=== PATIENT | female | born 1980 | race Caucasian/White ===

== ENCOUNTER 2025-05-14 21:37 | Day surgery (SDC) | payer OTHER, SELFPAY ==
[2025-05-14] VITALS (7 sets, daily range): BP systolic 100–118; BP diastolic 65–74; BMI 30.8
--- NOTE | 2025-05-14 18:07 | ED.GENMED ---
History of Present Illness
General
Chief Complaint: Abdominal Pain
Source: patient
Exam Limitations: none
Time Seen by Provider: 05/14/25 18:02
History of Present Illness
History of Present Illness:
Note:
CHIEF COMPLAINT(S)
Abdominal pain.
HISTORY OF PRESENT ILLNESS
A 44-year-old female with a past medical history of acute myeloid leukemia in remission (2008) presents with abdominal pain that began abruptly at 9:00 AM today. The pain initially presented in the lower abdomen and radiated to the side and back,
persisting without relief. The patient experienced diarrhea three times consecutively following the onset of pain and noted that it was severe and persistent, prompting her to take an unspecified pill, after which the diarrhea stopped. She denies
any fever and states she has not been in contact with anyone sick. She has no previous history of similar symptoms and denies respiratory symptoms directly related to the abdominal discomfort. The patient admits to a chronic cough, which she
attributes to her smoking habit. The patient also reports that walking or lying on her back exacerbates the pain, while lying on her left side provides some relief. There have been no recent dietary changes except for consuming a salad the previous
night. She has no past history of intra abdominal surgeries.
ALLERGIES
Patient states that she gets hives when she takes morphine
PAST MEDICAL HISTORY
Leukemia. She monitors her condition with blood work every six months or more frequently if feeling unwell.
SOCIAL HISTORY
The patient is a smoker and indicates the presence of a chronic cough related to this habit.
REVIEW OF SYSTEMS
See HPI
PHYSICAL EXAM
General: Patient is well appearing and in no acute distress; non-toxic
Skin: Warm and dry, no rashes or lesions
Head: Normocephalic, atraumatic
Eyes: Sclera non-icteric. EOMs intact.
Cardiac: Regular rate and rhythm, no murmurs
Peripheral Vascular: No lower extremity swelling or edema
Pulm: Normal respiratory effort, no wheezes, rales, or rhonchi
Abdomen: Diffuse non-focal abdominal tenderness to palpation with guarding
Neuro: CN II-XII intact, no focal neurologic deficits.
Psychiatric: Appropriate mood and affect.
PLAN
- CBC CMP Lipase
- IV fluids, Toradol, Zofran
- CT scan of the abdomen pelvis with IV contrast
- Urinalysis
DIFFERENTIAL DIAGNOSIS
The Differential Diagnosis includes, in no particular order and is not limited to:
1. Acute Gastroenteritis
2. Appendicitis
3. Gallbladder disease
4. Urinary Tract Infection
5. Bowel Obstruction
6. Diverticulitis
7. Peptic Ulcer Disease
8. Gastroesophageal Reflux Disease
9. Pancreatitis
10. Mesenteric Ischemia
REVIEW OF PRIOR RECORDS
No previous ER physician documentation to review
MDM/DISPOSITION
44-year-old female with a past medical history of AML in remission currently on no medications presents emergency department today with concerns of bilateral lower abdominal pain. Wraps around to her back. Is associated with nausea, vomiting, and
diarrhea. She underwent a CAT scan of the abdomen pelvis with IV contrast which revealed acute appendicitis but no evidence of perforation. She does have a leukocytosis however she is afebrile. I did review case with general surgeon Dr. Mccord
via the phone, considering patient's pain is well-controlled, there is no evidence of perforation on CAT scan, and she is afebrile, will plan for surgery tomorrow rather than this evening. Patient will be started on Zosyn. Patient referred for
admission under general surgery service.
Review of Systems
Review of Systems
All Other Systems: ROS reviewed and negative except as documented in HPI and ROS
Phy Exam
Physical Exam
Physical Exam:
see hpi
Course
Orders/Labs/Results
Orders:
Orders
05/14/25 18:24
0.9% Sodium Chloride 250 ml [Nss] 250 ml IV BOLUS
Ketorolac [Toradol] 15 mg IV NOW STA
Ondansetron Injectable [Zofran] 4 mg IV NOW STA
05/14/25 18:25
CT Abd/pelvis W Iv Cont Urgent
Comment:
Reason For Exam: diffuse lower abdominal pain
05/14/25 18:47
Complete Blood Count/With Diff Urgent
Comprehensive Metabolic Panel Urgent
Lipase Urgent
05/14/25 20:03
Piperacillin/Tazo 4.5 Gram [Zosyn] 4.5 gram in 100 ml IV NOW
05/14/25 20:45
Acetaminophen 1000MG/100Ml [Ofirmev] 1,000 mg in 100 ml IV ONCE
Acetaminophen IV Indication:: No MN & No Enteral Access
05/14/25 21:12
Admit/Transfer Patient As Directed
Co-Sign Provider:
Level of Care: Observation services
Assign to:: Medical/Surgical
Physician / Group: Dr. Weiss /Surgery
Diagnosis: acute appendicitis
PRN Pain Medication Management As Directed
May give lesser potent ordered pain med per pt: Yes
preference::
Protocol:: Medication orders for pain may be administered in a
manner that supports deferring to patient preference
when the pt is:
- Requesting an ordered lesser potent pain medication.
Least to most potent pain medications are defined
as: acetaminophen < NSAID < tramadol < opioids
(morphine, oxycodone, hydromorphone).
- Requesting a lesser dose of the same medication IF
ORDERED.
- Requesting a less intrusive route of administration
if both routes are prescribed by the provider (PO <
IV).
05/14/25 21:16
Code Status As Directed
Resuscitation Status: Full Code
05/14/25 22:00
Flush (0.9% Sodium Chloride) [Flush (Nss)] See Dose Instructions IV PER PROTOCOL
05/14/25 23:07
0.9% Sodium Chloride 1000 ml [Nss] 1,000 ml IV 80 mls/hr
Acetaminophen [Tylenol] 650 mg PO Q4HPRN PRN
Bisacodyl [Dulcolax] 10 mg RECTAL [id number] PRN
Docusate W/Senna [Senokot-S] 1 tablet PO BIDPRN PRN
Ondansetron Injectable [Zofran] 4 mg IV Q6HPRN PRN
Polyethylene Glycol Powder [Miralax] 17 grams PO DAILYPRN PRN
05/14/25 23:07
EKG [Electrocardiogram (*1)] Routine
Reason for Study: QTc Monitoring
Activity As Directed
Activity Level: Out of Bed-Early Mobility
Pneumatic Compression Sleeves As Directed
Type: Knee high
Vital Signs As Directed
Frequency: Per unit guidelines
DX Deep Vein Thrombosis Video Routine
05/15/25 00:00
Ketorolac [Toradol] 10 mg IV Q6HPRN PRN
05/15/25 05:00
Piperacillin/Tazo 3.375 Gram [Zosyn] 3.375 gram in 50 ml IV Q6
05/15/25 Breakfast
NPO
Allow oral meds: Yes
Allow clear liquids: No
Abnormal Lab Results
05/14/25
18:47
WBC 19.2 H 10^3/uL
(4.8-10.8)
RBC 4.10 L 10^6/uL
(4.20-5.40)
MCH 32.9 H pg
(27.0-31.0)
MPV 11.0 H fL
(7.4-10.4)
Abs Immat Gran (auto) 0.1 H 10^3/uL
(0-0.05)
Absolute Neuts (auto) 16.1 H 10^3/uL
(1.4-6.5)
Absolute Monos (auto) 0.9 H 10^3/uL
(0.1-0.6)
Neutrophils % 84.1 H %
(42.2-75.2)
Lymphocytes % 10.2 L %
(20.5-51.1)
Chloride 108 H mmol/L
(98-107)
BUN 4 L mg/dl
(7-17)
Glucose 109 H mg/dl
(70-99)
05/14/25 18:47
05/14/25 18:47
Vital Signs
Initial and Last Documented VS:
Initial Vital Signs
Temp Pulse Resp BP Pulse Ox
98.4 F 68 16 116/74 98
05/14/25 17:34 05/14/25 17:34 05/14/25 17:34 05/14/25 17:34 05/14/25 17:34
Last Documented Vital Signs
Temp Pulse Resp BP Pulse Ox
98.8 F 75 17 110/66 100
05/14/25 23:30 05/14/25 23:30 05/14/25 23:30 05/14/25 23:30 05/14/25 23:30
*Pulse Oximetry
SaO2: 98
Oxygen Mode of Delivery: Room air
Patient hypoxic: no
*Critical Care Note
Total Time (30-74mins, 75-104mins- exclusive of procedures): Not Applicable
ED Attending Note
-
Portions of this chart may have been created with voice recognition software.� Occasional wrong word or��sound alike� substitutions may have occurred due to the inherent limitations of voice recognition software.
Discharge Plan
Departure
Patient Disposition: Admit
Date of Disposition: 05/14/25
Time of Disposition: 20:04
Admit to: Med/Surg
Presentation/result/management discussed w/ accepting /DO: Dr. Velázquez
Patient with high blood pressure during this ER visit?: No
Condition: Good
Discharge Problem:
Acute appendicitis
Interventions
Interventions:
*Risk Screen - Suicide Last Done: 05/14/25 23:54
*General Assessment Last Done: 05/14/25 18:53
*Neglect/Abuse Screening Last Done: 05/14/25 17:34
*ED- Fall Risk Assessment Last Done: 05/14/25 18:53
*ED COVID-19 Vaccine History Last Done: 05/14/25 18:53
*Nursing Disposition Last Done: 05/14/25 22:53
N[place]-[id number]-[id number] Assessment Last Done: 05/14/25 18:53
Discharge Date and Time
Discharge Date/Time: 05/14/25 23:05
[2025-05-14] MEDS: NSS 250 IV (18:48)
[2025-05-14] MEDS: ZOFRAN 4 MG IV (18:48)
[2025-05-14] MEDS: TORADOL 15 MG IV (18:48)
[2025-05-14 18:59] LABS: % Basophils 0.2 % (0-2); % Eosinophils 0.2 % (0-6); % Immature Granulocytes 0.4 % (0-0.5); % Lymphocytes 10.2 % (20.5-51.1); % Monocytes 4.9 % (1.7-9.3); % Neutrophils 84.1 % (42.2-75.2); Absolute Immature Granulocytes 0.1 10^3/uL (0-0.05); Absolute Monocytes 0.9 10^3/uL (0.1-0.6); Absolute Neutrophils 16.1 10^3/uL (1.4-6.5); Hematocrit 38.7 % (37.0-47.0); Hemoglobin 13.5 g/dL (12.0-16.0); Mean Corp Hgb Conc. 34.9 g/dL (33.0-37.0); Mean Corpuscular Hgb 32.9 pg (27.0-31.0); Mean Corpuscular Volume 94.4 fL (81.0-99.0); Nucleated Red Blood Cells % 0 %; Platelet Count 280 10^3/uL (130-400); Red Cell Dist. Width 13.2 % (11.5-14.5); White Blood Cell Count 19.2 10^3/uL (4.8-10.8)
[2025-05-14 19:16] LABS: ALT (SGPT) 15 U/L (0-35); AST (SGOT) 15 U/L (14-36); Albumin 4.3 g/dl (3.5-5.0); Alkaline Phosphatase 77 U/L (38-126); Blood Urea Nitrogen 4 mg/dl (7-17); Carbon Dioxide 24 mmol/L (22-30); Chloride 108 mmol/L (98-107); Estimated Creatinine Clearance 94 ml/min; Glucose 109 mg/dl (70-99); Lipase 93 U/L (23-300); Potassium 3.7 mmol/L (3.5-5.1); Sodium 137 mmol/L (135-145); Total Bilirubin 0.6 mg/dl (0.2-1.3); Total Protein 6.4 g/dl (6.3-8.2); eGFR > 60.00
[2025-05-14] MEDS: ZOSYN 100 IV (20:44)
[2025-05-14] MEDS: OFIRMEV 100 IV (20:51)
--- NOTE | 2025-05-14 20:57 | HPS.HSE ---
Addendum entered and electronically signed by Jj Weiss MD 05/15/25 09:31:
I saw and examined the patient independently.
The Global Upstream Marketing Manager's note was reviewed and I agree with the note, assessment and plan except where noted below.
Comment: This is a 44-year-old female with a history of AML, in remission who presents with a 1-day history of lower abdominal pain found to have acute appendicitis on CT imaging.
Will plan for laparoscopic appendectomy today.
N.p.o., IV fluids, IV antibiotics ordered.
Risks/Benefits/Alternatives, expected postoperative course and possible complications (bleeding, infection, injury to surrounding structures, acute/chronic pain) discussed at length. Patient wishes to proceed with surgery. All questions answered.
Consent obtained.
I spent 45 minutes in total for the care of this patient today including direct patient care and counseling, reviewing labs, imaging, coordination of care, as well as documentation.
Original Note:
Family Physician
-
Family Physician: NOT KNOW UNKNOWN - PT DOES
Chief Complaint
-
Abdominal pain
History of Present Illness
A 44 years old female with PMH acute myeloid leukemia in remission (2008), present to ER with a complain of abdominal pain that started this am in the lower abdomen radiating to the side and back. Patient was not able to get in comfortable position
she took Tylenol with no relief. Symptoms associate with nausea and vomitingx1. Reported diarrhea x3 and she took Imodium at home. Denies SOB, chest pain, chills, fever, urinary symptoms or any other symptoms. Reported chronic cough which is related
to smoking. Patient is not receiving prescribed meds at home.
Medical History
Past Medical History
Past Medical History: Reports Other (acute myeloid leukemia in remission (2008) )
Past Surgical History: Reports None
Social History
Tobacco: Smoker
Alcohol: Occasional
Drug: None
Personal: Other
Living: With Family
Employment: Employed
Family History
Family History: Not pertinent
Allergies / Home Medications
Allergies reflects when Allergies were last updated in [facility].
Home Medications with original date entered in [facility]
Allergy/Medication List:
Patient Allergies
Allergy/AdvReac Type Severity Reaction Status Date / Time
morphine Allergy Mild Hives Verified 05/14/25 17:33
vancomycin Allergy Mild Rash Verified 05/14/25 17:33
Review of Systems
-
History Source: Patient
A 12 point ROS was completed and negative except as noted: Yes
Constitutional: Reports No Symptoms
Respiratory: Reports Cough (chronic cough )
Abdomen/GI: Reports Abdominal Pain, Nausea, Vomiting and Diarrhea
: Reports No Symptoms
Musculoskeletal: Reports No Symptoms
Psych: Reports No Symptoms
Physical Exam
Vital Signs
Vital Signs
Temp Pulse Resp BP Pulse Ox
98.4 F 58 16 113/65 98
05/14/25 17:34 05/14/25 18:41 05/14/25 17:34 05/14/25 20:00 05/14/25 20:15
Physical Exam
General: No Apparent Distress
Respiratory: Clear
Cardiac: Regular Rhythm
GI: Soft, Non Tender, Non Distended and Normal Bowel Sounds
Musculoskeletal: No Edema
Neuro: Awake and AO x 3
Laboratory Results
-
05/14/25 18:47
05/14/25 18:47
Laboratory Results
Total Bilirubin 0.6 mg/dl (0.2-1.3) 05/14/25 18:47
AST 15 U/L (14-36) 05/14/25 18:47
ALT 15 U/L (0-35) 05/14/25 18:47
Alkaline Phosphatase 77 U/L (38-126) 05/14/25 18:47
Lipase 93 U/L (23-300) 05/14/25 18:47
Data Reviewed
-
CT Scan: Discussed with Patient
Lab Data: Discussed with Patient
Impression/Plan
-
Abd/PLVS CT shows
1. MILD ACUTE APPENDICITIS with multiple calcified appendicoliths in the appendiceal lumen.
2. Small amount of peritoneal fluid in the pelvic cul-de-sac.
WBC 19.2
IMPRESSION:
Acute appendicitis
PLAN:
Admit/observation/med-surg (Dr. Weiss/ Surgical services)
NPO
IVF
Abx Zosyn
analgesics as needed
antiemetics as needed
DVT Prophylaxis SCDs
Code status Full code
[2025-05-14] MEDS: NSS 1000 IV (23:24)
[2025-05-15] VITALS (9 sets, daily range): BP systolic 91–102; BP diastolic 51–62; BMI 30.9
[2025-05-15] MEDS: TORADOL 10 MG IV (02:38)
[2025-05-15] MEDS: ZOSYN 50 IV (05:24)
[2025-05-15] MEDS: TYLENOL 650 MG PO (05:24)
--- NOTE | 2025-05-15 09:31 | W.SUR.PREOP ---
Pre-Operative Surgical Note
-
I have examined this patient prior to the performance of the scheduled procedure.
The patient's condition is unchanged from the time of the current History and
Physical and the patient is able to undergo the scheduled procedure.
--- NOTE | 2025-05-15 11:32 | W.IMMPOSTOP ---
Surgical Immed Post Op Note
-
Primary Surgeon: Jj Weiss MD
Assisting Surgeon: None
Pre-op Diagnosis: Acute appendicitis
Post-op Diagnosis: Same
Procedure Performed: Laparoscopic appendectomy
Anesthesia Type: General
Specimen / Cultures: Appendix
Estimated Blood Loss: 3 cc
Complications: None
Operative Findings: Veress, three 5 mm port appendectomy. Inflamed, locally perforated appendicitis with murky fluid in the pelvis suctioned up. Base taken with an Endoloop x 2.
POST OP PLAN:
Will DC home today with a 4-day course of antibiotics.
--- NOTE | 2025-05-15 11:34 | OR.RPT ---
Operative Report
Operative Report
Patient Name: Sherice Juan
: 1980
Date of Operation: 05/15/2025
Preoperative Diagnosis: Acute Appendicitis
Postoperative Diagnosis: Same
Procedure(s):
Laparoscopic Appendectomy
Surgeon(s):
Dr. Weiss
Mac Operator(s):
LUIS F Qureshi
Anesthesia: General
Estimated Blood Loss: 3 cc
Urine Output: None
Drains/Lines/Implants: None
Specimens:
1. Appendix
HPI/Surgical Indications:
This is a 44-year-old female who presents with a 1 day history of abdominal pain. Exam, labs and imaging are consistent with acute appendicitis. Risks/Benefits/Alternatives were discussed at length, and the patient agreed to proceed with surgery.
Operative Findings: Veress, three 5 mm port appendectomy. Inflamed, locally perforated appendicitis with murky fluid in the pelvis suctioned up. Base taken with an Endoloop x 2.
Procedure Description:
The patient was placed in the supine position, with the left arm tucked, and general anesthesia was induced. The abdomen was prepared and draped in a sterile fashion so as to expose the entire abdomen. A surgical time out was taken. Abdominal access
was obtained with a Veress left upper quadrant entry which required a single pass followed by a 5 mm left lower quadrant Optiview entry. After confirming no injury on entrance, two additional 5mm ports were placed in the suprapubic area just off
midline and just below the umbilicus. The patient was placed in Trendelenberg with the right slightly up . The appendix was identified and a window was created in the mesoappendix. The appendix was suppurative and inflamed with evidence of local
perforation and murky fluid that was extending down into the pelvis which was suctioned up. Using a laparoscopic bipolar energy device, the meso appendix was divided. The base of the appendix appeared uninvolved and was ligated/divided using two
0-PDS Endoloops and the energy device. The appendix was placed in a specimen retrieval bag. Hemostasis was confirmed and the ports were removed under visualization. The specimen was passed off the field. The umbilical port was closed with a
[id number] 0-PDS and the skin for all three ports was closed with interrupted monocryls and covered with dermabond. The patient was awoken from anesthesia in good condition and transported to the recovery area.
I was the attending physician and performed the procedure with assistance from the UNDER GROUND MINER above. I was present for all portions of the case except skin closure.
Jj Weiss MD
[2025-05-15] MEDS: ZOSYN IV (12:38)
--- NOTE | 2025-05-15 12:55 | PTCARENOTE ---
pt returned from PACU to room @1235. pt awake but drowsy. at bedside. pt oriented to post op plan of care. tolerating water. denies nausea or abdominal pain. 3 lap sites and 1 puncture site ROSANGELA w/surgical glue. IVF infusing. care
ongoing
--- NOTE | 2025-05-15 13:01 | CM ---
Patient in OR. Initial assessment completed with . Patient lives with her and 2 children (11 and 17 y/o) in a 1 story home with no basement and no steps to enter. 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
FT. No DME or in-home services. Support system is family and extended family. No HC-POA. Patient does not have a PCP. Pharmacy is [facility] in [place]. Discharge POC: Home with no needs.
--- NOTE | 2025-05-15 15:22 | PTCARENOTE ---
pt Out of bed -ambulatory to bathroom. voiding qs. tolerated regular lunch. eager for discharge home with .
--- NOTE | 2025-05-15 16:09 | CM ---
Patient has been medically cleared for discharge to home with no additional skilled services. transported home.
== END 2025-05-15 15:41 | disposition home or self-care (01) ==
LOC: SDS 21:37
PROVIDERS: Physician Assistant; ATTENDING PHYSICIAN Surgery; EMERGENCY PHYSICIAN Student in an Organized Health Care Education/Training Program
DX: K35.80 Unspecified acute appendicitis (principal)
CPT/HCPCS: 44970; 88304; 74177; 80053; 83690; 85025; 93005; 96361; 96374; 96375; 99285; 99406; C1776; G0378; Q9967

== ENCOUNTER 2025-05-21 12:49 | Day surgery (SDC) | payer OTHER, SELFPAY ==
[2025-05-21] VITALS (11 sets, daily range): BP systolic 16–118; BP diastolic 51–70; BMI 27.5; BMI 26.0
[2025-05-21 01:38] LABS: % Basophils 0.4 % (0-2); % Eosinophils 0.8 % (0-6); % Immature Granulocytes 0.4 % (0-0.5); % Lymphocytes 14.2 % (20.5-51.1); % Monocytes 7.6 % (1.7-9.3); % Neutrophils 76.6 % (42.2-75.2); Absolute Basophils 0.1 10^3/uL (0-0.2); Absolute Eosinophils 0.2 10^3/uL (0-0.7); Absolute Immature Granulocytes 0.1 10^3/uL (0-0.05); Absolute Lymphocytes 2.8 10^3/uL (1.2-3.4); Absolute Monocytes 1.5 10^3/uL (0.1-0.6); Absolute Neutrophils 15.3 10^3/uL (1.4-6.5); Hematocrit 39.7 % (37.0-47.0); Hemoglobin 13.7 g/dL (12.0-16.0); Mean Corp Hgb Conc. 34.5 g/dL (33.0-37.0); Mean Corpuscular Hgb 32.3 pg (27.0-31.0); Mean Corpuscular Volume 93.6 fL (81.0-99.0); Mean Platelet Volume 10.8 fL (7.4-10.4); Nucleated Red Blood Cells % 0 %; Platelet Count 310 10^3/uL (130-400); Red Blood Cell Count 4.24 10^6/uL (4.20-5.40); Red Cell Dist. Width 13.6 % (11.5-14.5)
[2025-05-21 01:39] LABS: ALT (SGPT) 14 U/L (0-35); AST (SGOT) 15 U/L (14-36); Albumin 4.3 g/dl (3.5-5.0); Alkaline Phosphatase 69 U/L (38-126); Blood Urea Nitrogen 7 mg/dl (7-17); Calcium 9.2 mg/dl (8.4-10.2); Carbon Dioxide 22 mmol/L (22-30); Chloride 108 mmol/L (98-107); Glucose 110 mg/dl (70-99); Sodium 139 mmol/L (135-145); Total Bilirubin 0.4 mg/dl (0.2-1.3); Total Protein 6.7 g/dl (6.3-8.2); eGFR > 60.00
[2025-05-21 01:42] LABS: Lactic Acid 0.6 mmol/L (0.7-2.0)
[2025-05-21] MEDS: ANCEF 10 IV (06:19)
[2025-05-21] MEDS: NSS 1000 IV ×2 (06:19→14:43)
--- NOTE | 2025-05-21 08:18 | ED.GENMED ---
History of Present Illness
General
Chief Complaint: Fever
Source: patient
Exam Limitations: none
Time Seen by Provider: 05/21/25 05:58
History of Present Illness
History of Present Illness:
44-year-old female lap appendectomy May 15. Was doing well. No general abdominal pain but noted fever 2 days ago. Noted area of redness below her umbilicus in the last 48 hours. No urinary symptoms nausea vomiting back pain or other complaints
Past History
Past History
ED Past Surgical History: Appendectomy
Review of Systems
Review of Systems
All Other Systems: Not applicable
Constitutional: Reports fever and chills
Respiratory: Reports no symptoms
: Reports no symptoms
Phy Exam
Physical Exam
Physical Exam:
GENERAL: Alert and oriented in no apparent distress
EYE: Orbits normal.
NECK: Supple, no significant adenopathy.
ENT: Pharynx without erythema
CARDIAC: Regular rate and rhythm without any obvious murmurs.
LUNGS: Clear breath sounds,normal
ABDOMEN: Soft, no general tenderness. No rebound or guarding no mass or hernia. Small post laparoscopic surgical wounds all appear well. However below the umbilicus there is an area of erythema induration and tenderness. Approximately 10 x 10 cm.
NEUROLOGICAL: Alert and oriented , grossly non-focal
SKIN: Warm and dry, no rash or lesion, no discoloration, skin intact.
MUSCULOSKELETAL: No edema,no deformity.Good color
PSYCH: Normal and appropriate interaction.
Course
Orders/Labs/Results
Orders:
Orders
05/21/25 01:15
Complete Blood Count/With Diff Urgent
Comprehensive Metabolic Panel Urgent
Lactic Acid Urgent
Blood Culture Urgent
LESTER Source: Blood/Venous
Specimen Description:
05/21/25 Breakfast
NPO
Allow oral meds: Yes
Allow clear liquids: No
05/21/25 06:06
CT Abd/Pel (IV only)-DH only Urgent
Comment:
Reason For Exam: Fever recent appendicitis/abdominal wall celluliti
IV Insert/Care/Rem.- Treatment PRN
0.9% Sodium Chloride 1000 ml [Nss] 1,000 ml IV BOLUS
05/21/25 06:07
Urinalysis Reflex To Culture Urgent
CeFAZolin 2 GRAM [Ancef] 2 grams in 10 ml IV NOW
05/21/25 09:27
Piperacillin/Tazo 3.375 Gram [Zosyn] 3.375 gram in 50 ml IV ONCE
05/21/25 09:45
Fentanyl Citrate/Pf [Sublimaze] 25 mcg IV [id number] PRN
HYDROmorphone [Dilaudid] 0.25 mg IV PACU-Q5MPRN PRN
HYDROmorphone [Dilaudid] 0.5 mg IV PACU-Q5MPRN PRN
Normosol (Mult Electrolytes) [Normosol-R/Plasmalyte-A] 1,000 ml IV PER PROTOCOL
Ondansetron Injectable [Zofran] 4 mg IV PACU-ONCEPRN PRN
Prochlorperazine [Compazine] 5 mg IV PACU-ONCEPRN PRN
Notify MD As Directed
Notify physician if: for SDS patients with known or suspected sleep obstructive sleep apnea, monitor in the
PACU.
Notify MD for any apneic/desaturation episodes
O2 Therapy [RESP] Urgent
Titrate/Wean O2 to maintain O2 sat greater than (%): 92
Special Instructions: -Provide supplemental oxygen to achieve O2 sat of 92% or greater.
-After 15 min, may wean O2 and discontinue if patient is able to maintain O2 sat of 92%
or greater during recovery period.
If patient is a discharge home, without oxygen therapy, notify anestheiologist if
unable to maintain O2 SAT of 92% or greater on room air for MD clearance.
05/21/25 10:00
Nicotine [Nicoderm Transdermal] 21 mg TRANSDERM DAILY
05/21/25 22:00
Remove Patch [Remove Nicotine Patch] 1 patch REMOVE HS
Abnormal Lab Results
05/21/25
01:15
WBC 20.0 H 10^3/uL
(4.8-10.8)
MCH 32.3 H pg
(27.0-31.0)
MPV 10.8 H fL
(7.4-10.4)
Abs Immat Gran (auto) 0.1 H 10^3/uL
(0-0.05)
Absolute Neuts (auto) 15.3 H 10^3/uL
(1.4-6.5)
Absolute Monos (auto) 1.5 H 10^3/uL
(0.1-0.6)
Neutrophils % 76.6 H %
(42.2-75.2)
Lymphocytes % 14.2 L %
(20.5-51.1)
Chloride 108 H mmol/L
(98-107)
Glucose 110 H mg/dl
(70-99)
Lactic Acid 0.6 L mmol/L
(0.7-2.0)
05/21/25 01:15
05/21/25 01:15
Vital Signs
Initial and Last Documented VS:
Initial Vital Signs
Temp Pulse Resp BP Pulse Ox
99.0 F 95 16 118/70 97
05/21/25 00:55 05/21/25 00:55 05/21/25 00:55 05/21/25 00:55 05/21/25 00:55
Last Documented Vital Signs
Temp Pulse Resp BP Pulse Ox
99 F 78 18 116/65 99
05/21/25 03:56 05/21/25 03:56 05/21/25 03:56 05/21/25 03:56 05/21/25 08:21
MDM/Problems Addressed
Differential Diagnosis Includes:
Clinically very suspicious of the cellulitis/early abscess as a source of her fever and persistent white count. CT scan confirms this. Clinically and by radiologic and lab testing warrants inpatient IV antibiotics. Referred to surgery. Patient
reluctant to stay but it does appear she will likely stay
*Radiology
Radiology exam reviewed: radiology read reviewed (Local abdominal wall cellulitis possible abscess or seroma no intra-abdominal issue)
*Pulse Oximetry
SaO2: 99
Oxygen Mode of Delivery: Room air
Patient hypoxic: no (99%)
*Critical Care Note
Total Time (30-74mins, 75-104mins- exclusive of procedures): Not Applicable
Data Reviewed
Review of Other/Old Records Reveals: Labs, Records, Operative Reports and Testing
ED Attending Note
-
Portions of this chart may have been created with voice recognition software.� Occasional wrong word or��sound alike� substitutions may have occurred due to the inherent limitations of voice recognition software.
Discharge Plan
Departure
Patient Disposition: Admit
Date of Disposition: 05/21/25
Time of Disposition: 08:18
Presentation/result/management discussed w/ accepting MD/DO: surgery
Discharge Problem:
Abdominal wall abscess/cellulitis, Recent laparoscopic appendectomy
Prescriptions:
No Action
acetaminophen [acetaminophen] 325 mg tablet
650 mg PO Q6HPRN PRN (Reason: mild pain) Qty: 14 0RF
tramadol 50 mg tablet
25 mg PO Q6HPRN PRN (Reason: severe pain/breakthrough pain) Qty: 8 0RF
ibuprofen 600 mg tablet
600 mg PO Q6H PRN (Reason: pain) Qty: 14 0RF
amoxicillin-pot clavulanate [Augmentin] 500-125 mg tablet
1 tab PO Q12H Qty: 8 0RF
Referrals:
NONE,* [Family Provider, Internal Medicine]
Interventions
Interventions:
*Risk Screen - Suicide Last Done: 05/21/25 00:55
*General Assessment Last Done: 05/21/25 00:55
*Neglect/Abuse Screening Last Done: 05/21/25 09:29
*ED- Fall Risk Assessment Last Done: 05/21/25 09:29
*ED COVID-19 Vaccine History Last Done: 05/21/25 09:29
ED- Neurological Assessment Last Done: 05/21/25 04:01
ED-Skin Assessment Last Done: 05/21/25 04:01
Discharge Date and Time
Print Language: UKRAINIAN
--- NOTE | 2025-05-21 10:51 | HPS.HSE ---
Family Physician
-
Family Physician: * NONE
Chief Complaint
-
redness to incision
History of Present Illness
Ms Juan is a 44 yo female who recently presented with acute appendicitis with laparoscopic appendectomy preformed on 05/15/[address] Weiss. Local perforation was noted intraoperatively and she was continued on oral abx x4 days upon discharge
with Augmentin. She notes she took her last dosage of antibiotics on and by the following day noted increasing erythema and tenderness to the incision near her umbilicus with chills and a fever. She presented for evaluation through the ED.
On exam, there is noted erythema below the umbilicus with tenderness present and induration deep into the tissue without obvious fluctuance. She denies n/v, bowel or bladder changes.
Medical History
Past Medical History
Past Medical History: Reports Cancer (AML tx 2008)
Past Surgical History: Reports Appendectomy (05/15/2025)
Social History
Tobacco: Smoker
Alcohol: Occasional
Personal:
Living: With Family
Family History
Family History: Not pertinent
Allergies / Home Medications
Allergies reflects when Allergies were last updated in [facility].
Home Medications with original date entered in [facility]
Allergy/Medication List:
Patient Allergies
Allergy/AdvReac Type Severity Reaction Status Date / Time
morphine Allergy Mild Hives Verified 05/14/25 17:33
vancomycin Allergy Mild Rash Verified 05/14/25 17:33
�Medication �Instructions �Recorded �Confirmed �Type
acetaminophen 325 mg tablet 650 mg (2 x 325 mg) PO Q6HPRN PRN 05/15/25 Rx
mild pain #14 tabs
amoxicillin 500 mg-potassium 1 tab PO Q12H #8 tabs 05/15/25 Rx
clavulanate 125 mg tablet
(Augmentin)
ibuprofen 600 mg tablet 600 mg PO Q6H PRN pain #14 tabs 05/15/25 Rx
tramadol 50 mg tablet 25 mg (1/2 x 50 mg) PO Q6HPRN PRN 05/15/25 Rx
severe pain/breakthrough pain #8
tabs
Review of Systems
-
History Source: Patient and Family
A 12 point ROS was completed and negative except as noted: Yes
Physical Exam
Vital Signs
Vital Signs
Temp Pulse Resp BP Pulse Ox
99 F 78 18 116/65 99
05/21/25 03:56 05/21/25 03:56 05/21/25 03:56 05/21/25 03:56 05/21/25 08:21
Physical Exam
General: Well Developed and Well Nourished
HEENT: NormoCephalic and Moist mucous membranes
Respiratory: Non Labored Respirations
GI: Soft, Non Distended and Tender (at periumbilical incision)
Skin: Other (Incision below the umbilicus with surrounding erythema, deep area of induration, no obvious fluctuance, no drainage. Other incisions healing well. )
Neuro: Awake and Alert
Psych: Agitated (wants to smoke)
Laboratory Results
-
05/21/25 01:15
05/21/25 01:15
Laboratory Results
Lactic Acid 0.6 mmol/L (0.7-2.0) L 05/21/25 01:15
Total Bilirubin 0.4 mg/dl (0.2-1.3) 05/21/25 01:15
AST 15 U/L (14-36) 05/21/25 01:15
ALT 14 U/L (0-35) 05/21/25 01:15
Alkaline Phosphatase 69 U/L (38-126) 05/21/25 01:15
Data Reviewed
-
CT Scan: Image Personally Visualized and interpreted, Report Reviewed by me, Discussed with Physician, Discussed with Nurse, Discussed with Patient and Discussed with Family
Lab Data: Labs Reviewed by me, Discussed with Physician, Discussed with Nurse, Discussed with Patient and Discussed with Family
Old Records: Reviewed
Impression/Plan
-
IMPRESSION:
44 yo female who recently presented with acute appendicitis with laparoscopic appendectomy preformed on 05/15/[address] Weiss. Local perforation was noted intraoperatively and she was continued on oral abx x4 days upon discharge. She notes she
took her last dosage of antibiotics on and by the following day noted increasing erythema and tenderness to the incision near her umbilicus with chills and a fever. Induration noted on exam with concern for surgical site infection with
phlegmon/early abscess on CT imaging. Denies Gi symptoms. Leukocytosis present with WBC of 20. Afebrile with stable vital signs.
PLAN:
Ancef given in ED, will give Zosyn for broader gram neg coverage
NPO for OR today for I&D
Anticipate will stay overnight for IV abx
Recommended nicotine patch as patient very anxious about not being able to smoke, she is currently refusing
Analgesics prn
--- NOTE | 2025-05-21 13:38 | W.IMMPOSTOP ---
Addendum entered and electronically signed by Bruce Lindsay MD 05/21/25 13:58:
updated spouse via phone
Original Note:
Surgical Immed Post Op Note
-
Primary Surgeon: Bruce Lindsay MD
Assisting Surgeon: Ami Willis NP
Pre-op Diagnosis: Umbilical incision abscess
Post-op Diagnosis: Umbilical incision abscess
Procedure Performed: Incision and drainage of umbilical abscess
Anesthesia Type: Sedation with local
Specimen / Cultures: Aerobic and anaerobic culture
Estimated Blood Loss: 5 mL
Complications: None
Operative Findings: Identified abscess on ultrasound, confirming its presence; opened up umbilical incision and encountered 10 mL of purulent material; opened up umbilical incision to a 1.5 cm hole to promote drainage; abscess was copiously
irrigated and packed with Betadine�soaked 0.25 inch packing
--- NOTE | 2025-05-21 13:42 | OR.RPT ---
Operative Report
Operative Report
DATE OF OPERATION: 05/21/2025
SURGEON: Bruce Lindsay MD
PREOPERATIVE DIAGNOSIS: Umbilical incision abscess
POSTOPERATIVE DIAGNOSIS: Umbilical incision abscess
OPERATION: Incision and drainage of umbilical abscess with ultrasound-guidance
ASSISTANTS:
1. None
ANESTHESIA: Sedation with local
ESTIMATED BLOOD LOSS: 5 mL
FINDINGS:
1. Confirmed subcutaneous abscess on ultrasound imaging
2. Drained about 10 mL of purulent material, sent cultures
3. Packed abscess cavity with Betadine�soaked packing
SPECIMENS:
1. Umbilical abscess cultures
DRAINS: None
COMPLICATIONS: No immediate complications.
INDICATIONS: The patient is a 44-year-old female who underwent laparoscopic appendectomy on 05/15/2025. She did well postoperatively and was discharged on antibiotics. She completed her antibiotics 2 days ago, but started noticing redness and
tenderness near her umbilical incision, which continued to get worse. In the ED, her WBC was [address] scan showed phlegmonous changes around the umbilicus. There was significant induration. I was concerned for an abscess based on imaging and
exam. Based on the depth of the abscess, I felt the best drainage would be obtained in the operating room under sedation. The operation was discussed with the patient in detail, including the risks, benefits and alternatives. Risks described
included, but not limited to, bleeding, recurrent infection, incomplete drainage, damage to nearby structures and anesthetic risks. The patient understood and agreed to proceed.
PROCEDURE IN DETAIL: The patient was taken to the operating room and placed on the operating table in supine position with arms secured to the arm boards in extended position. Sequential compression devices were placed bilaterally. Sedation was
induced without complication. Preoperative antibiotics were given. The abdomen was prepped and draped in a sterile fashion. A time-out was performed verifying the correct patient, procedure, operative site, positioning, and special equipment.
Local anesthesia used was 30 mL of 0.25% Marcaine with epinephrine, 30 mL of 1% lidocaine plain and 0.6 mg of dexamethasone. I injected 30 mL of local around the umbilical incision. Using a curvilinear ultrasound probe, I investigated the
subcutaneous tissue to confirm an abscess cavity. I identified a narrow cavity just underneath the umbilical incision. I proceeded with incision and drainage. I used an 11 blade scalpel to open up the umbilical incision. I used a hemostat clamp
to probe. I immediately encountered 10 mL of purulent material, which I swabbed and sent for anaerobic and aerobic cultures. Using electrocautery, I extended the incision inferiorly to create a hole about 1.5 cm in diameter. I probed the abscess
cavity with a finger to break up any loculations. The fascia was gently felt and was intact. I copiously irrigated the abscess cavity. Hemostasis was confirmed. I packed the abscess cavity with 0.25 inch packing that was soaked in Betadine. I
injected the remainder of the local around the wound in the subcutaneous tissue.
At this point, the procedure was complete. The patient was awoken and extubated without complication. All needle, sponge and instrument counts were reported as correct. The patient tolerated the procedure well and was transferred to the recovery
room in stable condition.
DICTATED BY: Bruce Lindsay MD
[2025-05-21] MEDS: TORADOL 15 MG IV ×2 (14:49→20:47)
[2025-05-21] MEDS: TYLENOL 1000 MG PO (17:27)
[2025-05-21] MEDS: ZOSYN 50 IV ×2 (17:28→23:11)
[2025-05-21] MEDS: TYLENOL PO (23:10)
[2025-05-22] MEDS: TORADOL IV ×4 (02:54→20:41)
[2025-05-22] MEDS: NSS 1000 IV ×2 (02:55→16:11)
[2025-05-22 05:19] LABS: % Basophils 0.1 % (0-2); % Immature Granulocytes 0.7 % (0-0.5); % Lymphocytes 9.2 % (20.5-51.1); % Monocytes 3.4 % (1.7-9.3); % Neutrophils 86.6 % (42.2-75.2); Absolute Immature Granulocytes 0.1 10^3/uL (0-0.05); Absolute Lymphocytes 1.5 10^3/uL (1.2-3.4); Absolute Monocytes 0.6 10^3/uL (0.1-0.6); Absolute Neutrophils 14.4 10^3/uL (1.4-6.5); Hematocrit 35.8 % (37.0-47.0); Hemoglobin 12.1 g/dL (12.0-16.0); Mean Corp Hgb Conc. 33.8 g/dL (33.0-37.0); Mean Corpuscular Hgb 32.1 pg (27.0-31.0); Nucleated Red Blood Cells % 0 %; Platelet Count 280 10^3/uL (130-400); Red Blood Cell Count 3.77 10^6/uL (4.20-5.40); Red Cell Dist. Width 13.6 % (11.5-14.5); White Blood Cell Count 16.6 10^3/uL (4.8-10.8)
[2025-05-22] MEDS: TYLENOL PO ×4 (05:28→23:13)
[2025-05-22] MEDS: ZOSYN 50 IV ×4 (05:32→23:12)
[2025-05-22 07:50] VITALS: BP 82/55
[2025-05-22] MEDS: NSS 500 IV (08:30)
[2025-05-22 11:00] VITALS: BP 116/54
--- NOTE | 2025-05-22 14:23 | W.PN.GS2 ---
Addendum entered and electronically signed by Bruce Lindsay MD 05/23/25 00:24:
Delayed entry. I saw and examined the patient the morning of 05/22/2025.
The PROJECT MANAGER FINANCE's note was reviewed and I agree with the note.
Original Note:
Today's Communication / Plan
-
Local wound care
Assessment / Plan
-
44 yo female with recent presentation for acute appendicitis who is POD #7 lap appendectomy She was d/c'd on date of surgery to home on oral Augmentin but presented through the ED with sepsis secondary to infection/abscess of the periumbilical port
site/incision with surrounding cellulitis now POD #1 I&D in the OR
Afebrile. Hypotensive this am, BP responded to IVF bolus
Leukocytosis of 20 on presentation now trending down to 16.6
Bacteremia with blood cx taken in ED positive for bacteroides
Wound cx from the OR preliminarily with e-coli
Tolerating diet, no evidence of ileus
Dressing changed at bedside, no further purulence. Surrounding cellulitis improved
Plan:
Continue with IV abx, consult placed to ID in setting of bacteremia
Local wound care
Trend labs
Continue IVF
Continue regular diet
Analgesics prn
h/o tobacco use, declining nicotine patch
SCDs for VTE ppx
Subjective Data
-
Date of Service: May 22, 2025
Patient seen and examined at bedside with Dr Lindsay. Denies n/v. Tolerating diet. Feeling better than on arrival. Denies pain. Tearful and upset about needing to stay longer in the hospital, at bedside offering support.
Objective Data
-
Intake and Output
05/21/25 05/22/25 05/23/25
06:59 06:59 06:59
Intake Total 1630 / 1630
Balance 1630 / 1630
Intake:
Oral fluids 1260 / 1260
IV fluids (Total) 320 / 320
IV piggybacks 50 / 50
Other:
Number of approximated MODERATE 3
amounts of urine
Vital Signs
Temp Pulse Resp BP Pulse Ox
97.8 F 62 16 116/54 95
05/22/25 11:00 05/22/25 11:00 05/22/25 11:00 05/22/25 11:00 05/22/25 11:00
Lab Results
05/22/25 04:37
05/21/25 01:15
Calcium 9.2 mg/dl (8.4-10.2) 05/21/25 01:15
Total Bilirubin 0.4 mg/dl (0.2-1.3) 05/21/25 01:15
AST 15 U/L (14-36) 05/21/25 01:15
ALT 14 U/L (0-35) 05/21/25 01:15
Alkaline Phosphatase 69 U/L (38-126) 05/21/25 01:15
Total Protein 6.7 g/dl (6.3-8.2) 05/21/25 01:15
Albumin 4.3 g/dl (3.5-5.0) 05/21/25 01:15
Physical Exam
-
NAD
ABD soft, mildly tender below periumbilical incision with resolving cellulitis, ND
Periumbilical wound without purulence, dressing changed
--- NOTE | 2025-05-22 14:27 | CON.ID ---
Consultation
-
Date/Time Consultation Requested: 05/22/2025 1333
Date/Time Consultation Performed: 05/22/2025 1420
Requesting Provider: Dr. Lindsay
Performing Provider: Dr. Taveras
Reason for Consultation: Bacteremia
Chief Complaint / Past History
History of Present Illness
Sherice Juan is a 44-year-old female being evaluated at the request of Dr. Bruce Lindsay regarding bacteremia. History is obtained from chart review, along with patient interview.
The patient initially presented to [facility] on 05/14/2025 secondary to abdominal pain that began earlier that day. She noted that the pain initially was in the lower abdomen, with subsequent radiating to the side and back. She also
admitted to diarrhea at that time. ER workup revealed acute appendicitis via imaging and the patient was taken to the OR on 05/15 for laparoscopic appendectomy. She was discharged later that day to home on a course of antibiotics.
The patient returns back to the ER on 05/21 for abdominal discomfort. She reported fevers approximately 2 days prior, with increasing redness around the umbilicus over the prior 48 hours. Workup in the ER revealed an elevated white count of 20,000,
with CT imaging revealing inflammation at the umbilical area. She subsequently was taken to the OR yesterday, with the finding of 10 cc of purulent material around the umbilical area. Blood cultures obtained at admission are now positive for
Bacteroides, and wound cultures are positive for E. coli. Infectious Diseases asked to comment upon further antimicrobial therapy.
Past History
Additional Past Medical History:
AML (2008; currently in remission)
Additional Past Surgical History:
Appendectomy
Allergy History:
morphine Allergy (Mild, Verified 05/14/25 17:33)
Hives
vancomycin Allergy (Mild, Verified 05/14/25 17:33)
Rash
Medications Reviewed: Yes
Current Antibiotics:
Zosyn
Social History
Tobacco: Smoker
Alcohol: Occasional
Drug: None
Personal:
Living: With Family
Employment: Employed
Family History
Family History: Not Pertinent
Review of Systems
Vital Signs
Temp Pulse Resp BP Pulse Ox
97.8 F 62 16 116/54 95
05/22/25 11:00 05/22/25 11:00 05/22/25 11:00 05/22/25 11:00 05/22/25 11:00
Physical Exam
Physical Exam
Constitutional: No Acute Distress, Comfortable and Non-toxic
Eyes: No Conjunctival Hemorrhage and Sclera Anicteric
Oral: No Thrush and No Ulcers
Cardiovascular: Regular Rate and S1/S2; Negative S3/S4
Pulmonary: Clear; Negative Wheezes, Rales or Rhonchi
Gastrointestinal: Soft, Tender (Mildly minimal; periumbilical), Non Tender, Non Distended and Normal Bowel Sounds
Extremities: Negative Edema, Cyanosis or Erythema
Wound: Other (Periumbilical wound packed and dressed. Mild periwound erythema.)
Neurological: Awake and Alert
Psychological: Calm
Lab / Diagnostic Study Results
05/22/25 04:37
05/21/25 01:15
Abs Immat Gran (auto) 0.1 10^3/uL (0-0.05) H 05/22/25 04:37
Absolute Neuts (auto) 14.4 10^3/uL (1.4-6.5) H 05/22/25 04:37
Absolute Lymphs (auto) 1.5 10^3/uL (1.2-3.4) 05/22/25 04:37
Absolute Monos (auto) 0.6 10^3/uL (0.1-0.6) 05/22/25 04:37
Absolute Basos (auto) 0.0 10^3/uL (0-0.2) 05/22/25 04:37
Immature Gran % 0.7 % (0-0.5) H 05/22/25 04:37
Neutrophils % 86.6 % (42.2-75.2) H 05/22/25 04:37
Lymphocytes % 9.2 % (20.5-51.1) L 05/22/25 04:37
Monocytes % 3.4 % (1.7-9.3) 05/22/25 04:37
Eosinophils % 0.0 % (0-6) 05/22/25 04:37
Basophils % 0.1 % (0-2) 05/22/25 04:37
Lactic Acid 0.6 mmol/L (0.7-2.0) L 05/21/25 01:15
Microbiology Results
Micro:
05/21/25 01:15 Blood Culture - Preliminary
Blood/Venous Bacteroides fragilis
Gram Stain - Preliminary
05/21/25 13:15 Anaerobic Culture - Preliminary
Abscess Culture pending. Anaerobic cultures are examined after 3
days incubation. Additional information to follow.
05/21/25 13:15 Wound Culture - Preliminary
Abscess Escherichia coli
Gram Stain - Preliminary
05/21/25 15:46 MRSA Screen - Pending
Nose
Imaging:
05/21/2025 CT abdomen/pelvis: Patient is status post appendectomy. There is inflammatory fat stranding and skin thickening of the anterior abdominal wall in keeping with cellulitis. There is a small amount of infraumbilical midline fluid
attenuation at the incision site and may represent localized edema, seroma or developing abscess. Please see full dictation for additional detail. Film personally viewed.
Assessment / Plan
Umbilical/abdominal wall abscess
� Cultures with E. coli
Bacteremia with Bacteroides fragilis
Leukocytosis
Recommendations:
Continue with Zosyn for the present.
Await further culture data to guide and microbial selection and potential de-escalation. Hopeful transition to an oral regimen in the next 24 to 48 hours.
Care Review
Plan reviewed with: Physician (ISABELA)
[2025-05-22 15:10] VITALS: BP 99/49
[2025-05-22 23:14] VITALS: BP 106/63
[2025-05-23] MEDS: TORADOL IV ×3 (01:39→12:23)
[2025-05-23] MEDS: ZOSYN 50 IV ×2 (05:38→12:21)
[2025-05-23] MEDS: TYLENOL PO ×2 (05:41→12:23)
[2025-05-23 06:59] LABS: Hematocrit 31.3 % (37.0-47.0); Hemoglobin 10.5 g/dL (12.0-16.0); Mean Corp Hgb Conc. 33.5 g/dL (33.0-37.0); Mean Corpuscular Hgb 32.2 pg (27.0-31.0); Mean Platelet Volume 11.1 fL (7.4-10.4); Platelet Count 256 10^3/uL (130-400); Red Blood Cell Count 3.26 10^6/uL (4.20-5.40); Red Cell Dist. Width 13.9 % (11.5-14.5); White Blood Cell Count 12.6 10^3/uL (4.8-10.8)
[2025-05-23 07:30] VITALS: BP 98/56
[2025-05-23 07:30] LABS: Blood Urea Nitrogen 9 mg/dl (7-17); Calcium 8.5 mg/dl (8.4-10.2); Carbon Dioxide 24 mmol/L (22-30); Chloride 111 mmol/L (98-107); Estimated Creatinine Clearance 92 ml/min; Glucose 94 mg/dl (70-99); Sodium 139 mmol/L (135-145); eGFR > 60.00
--- NOTE | 2025-05-23 09:20 | W.PN.GS2 ---
Today's Communication / Plan
-
Dispo planning
Assessment / Plan
-
44 yo female with recent presentation for acute appendicitis who is POD #8 lap appendectomy She was d/c'd on date of surgery to home on oral Augmentin but presented through the ED with sepsis secondary to infection/abscess of the periumbilical port
site/incision with surrounding cellulitis now POD #2 I&D in the OR. Doing Well.
Bacteremia +bacteroides
Wound cx +e-coli
Plan:
Ideally d/c home today
Wound care supplies and instructions given/reviewed
Appreciate ID reccs for home
Dispo planning, pt to f/up with Dr. Weiss in 1 week.
Time Spent
Total Time Spent with Patient (in minutes): 20
Subjective Data
-
Date of Service: May 23, 2025
NAEON. Pain improved. No fevers. Wants to go home
Objective Data
-
Intake and Output
05/22/25 05/23/25 05/24/25
06:59 06:59 06:59
Intake Total 1630 / 1630 1939 / 1940
Balance 1630 / 1630 1939 / 194
Intake:
Oral fluids 1260 / 1260 600 / 600
IV fluids (Total) 320 / 320 1140 / 1140
IV piggybacks 50 / 50 200 / 200
Other:
Number of approximated MODERATE 3 3
amounts of urine
Vital Signs
Temp Pulse Resp BP Pulse Ox
98.1 F 45 16 98/56 98
05/23/25 07:30 05/23/25 07:30 05/23/25 07:30 05/23/25 07:30 05/23/25 07:30
Lab Results
05/23/25 06:20
05/23/25 06:20
Calcium 8.5 mg/dl (8.4-10.2) 05/23/25 06:20
Total Bilirubin 0.4 mg/dl (0.2-1.3) 05/21/25 01:15
AST 15 U/L (14-36) 05/21/25 01:15
ALT 14 U/L (0-35) 05/21/25 01:15
Alkaline Phosphatase 69 U/L (38-126) 05/21/25 01:15
Total Protein 6.7 g/dl (6.3-8.2) 05/21/25 01:15
Albumin 4.3 g/dl (3.5-5.0) 05/21/25 01:15
Physical Exam
-
Gen: NAD
CHEST: No labored breathing
ABD: Umbilical port site C/D/ Open, erythema resolved. no discharge. Packing replaced.
Patient has a ramirez catheter: No
Patient has a central line: No
--- NOTE | 2025-05-23 12:40 | CM ---
Alert awake oriented patient who lives with Sedrick and 2 teen children. She is independent in driving and all ADLs. She does not have a PCP . Pt given [facility] information. MD teaching patient wound care. Pt will ask new PCP MD to
set up VN if needed. Pt has friend who can assist with wound care.
No VN/SNF hx
No adaptive devices.
Pharmacy [facility]
PCP Given information [facility] for her to set up PCP
PLAN Home with some wound care supplies
--- NOTE | 2025-05-23 12:53 | W.DS.TRANS ---
DC Summary - Research Chemical Engineer
-
Discharge Instructions:
Discharge Diagnosis/Procedures Incisional abscess status post incision and
drainage
Diet As tolerated
Activity No strenuous activity
Additional Activity Do not lift over 15lbs for the next 2-3 weeks
Driving Restrictions No driving for 24 hours
Bathing Restrictions OK to Shower
Wound Care Keep your wound clean and dry. Pack with 1/4
inch iodoform gauze then Cover with dry gauze
dressing. Remove dressing for showers and apply
clean dressing after bathing. Change dressing
daily and as needed if drainage present. Leave
umbilical ring out until wound is fully healed.
Smoking can delay wound healing, we recommend
that you stop smoking.
Instructions: Quitting smoking for adults
Stand-Alone Forms:
Changes to Home Medications: No
Discharge Medications:
DC Medications w/original date entered in [employer]
acetaminophen 325 mg tablet 650 mg (2 x 325 mg) PO Q6HPRN PRN mild pain #14 tabs 05/15/25
ibuprofen 600 mg tablet 600 mg PO Q6H PRN pain #14 tabs 05/15/25
tramadol 50 mg tablet 25 mg (1/2 x 50 mg) PO Q6HPRN PRN severe pain/breakthrough pain #8 tabs 05/15/25
amoxicillin 875 mg-potassium clavulanate 125 mg tablet 1 tab PO Q12 antibiotic #20 tabs 05/23/25
Home Medication Changes
Pending Results: No
--- NOTE | 2025-05-23 13:10 | W.PN.ID1 ---
Date of Service
Date of Service: May 23, 2025
Today's Communication
Continue antibiotics. See below�
Assessment / Plan
Umbilical/abdominal wall abscess
� Cultures with E. coli
Bacteremia with Bacteroides fragilis
Leukocytosis
Recommendations:
E. coli isolate is pansensitive.
No residual collection.
Marked improvement in white count.
Given overall clinical improvement, transition to oral Augmentin 875 mg twice daily, for an additional 10 days.
Chief Complaint
-: Other (Abdominal wall abscess.)
Subjective / Review of Systems
Patient seen and examined. Reports feeling improved. Minimal abdominal discomfort at this time.
Review of Systems: No Fever and No Chills
Vital Signs / Physical Exam
Vital Signs
Vital Signs
Temp Pulse Resp BP Pulse Ox
98.1 F 45 16 98/56 98
05/23/25 07:30 05/23/25 07:30 05/23/25 07:30 05/23/25 07:30 05/23/25 08:30
Physical Exam
Constitutional: No Acute Distress, Comfortable and Non-toxic
Eyes: Sclera Anicteric
Cardiovascular: S1/S2; Negative S3/S4
Pulmonary: Non Labored
Gastrointestinal: Soft, Non Tender and Normal Bowel Sounds
Wound: Other (Abdominal wound dressed. Packing in place. Minimal periwound erythema)
Neurological: Awake and Alert
Psychological: Calm
Objective Data
Lab Data
Lab Results
05/23/25 06:20
05/23/25 06:20
Estimated Creat Clear 92 ml/min 05/23/25 06:20
Lactic Acid 0.6 mmol/L (0.7-2.0) L 05/21/25 01:15
Total Bilirubin 0.4 mg/dl (0.2-1.3) 05/21/25 01:15
AST 15 U/L (14-36) 05/21/25 01:15
ALT 14 U/L (0-35) 05/21/25 01:15
Alkaline Phosphatase 69 U/L (38-126) 05/21/25 01:15
Most recent labs reviewed.
Micro Results:
05/21/25 01:15 Blood Culture - Preliminary
Blood/Venous Bacteroides fragilis
Gram Stain - Preliminary
05/21/25 13:15 Anaerobic Culture - Preliminary
Abscess Culture pending. Anaerobic cultures are examined after 3
days incubation. Additional information to follow.
05/21/25 13:15 Wound Culture - Preliminary
Abscess Escherichia coli
Gram Stain - Preliminary
05/21/25 15:46 MRSA Screen - Final
Nose No Methicillin Resistant Staphylococcus aureus isolated.
Imaging:
05/21/2025 CT abdomen/pelvis: Patient is status post appendectomy. There is inflammatory fat stranding and skin thickening of the anterior abdominal wall in keeping with cellulitis. There is a small amount of infraumbilical midline fluid
attenuation at the incision site and may represent localized edema, seroma or developing abscess. Please see full dictation for additional detail. Film personally viewed.
Care Review
Plan reviewed with: Physician ([facility])
[2025-05-23 13:15] VITALS: BP 106/54
== END 2025-05-23 13:35 | disposition home or self-care (01) ==
LOC: SDS 12:49
PROVIDERS: Emergency Medicine; Registered Nurse; Surgery; ATTENDING PHYSICIAN Surgery; CONSULT PHYSICIAN Internal Medicine Infectious Disease; EMERGENCY PHYSICIAN Emergency Medicine
DX: T81.41XA Infection following a procedure, superficial incisional surgical site, initial encounter (principal); L02.216 Cutaneous abscess of umbilicus; T81.44XA Sepsis following a procedure, initial encounter; A41.89 Other specified sepsis; L03.311 Cellulitis of abdominal wall; Y83.8 Other surgical procedures as the cause of abnormal reaction of the patient, or of later complication, without mention of misadventure at the time of the procedure; B96.20 Unspecified Escherichia coli [E. coli] as the cause of diseases classified elsewhere
CPT/HCPCS: 10060; 74177; 80048; 80053; 83605; 85025; 85027; 87040; 87070; 87075; 87077; 87154; 87186; 87205; 96374; 99284; Q9967